=== PATIENT | female | born 1975 | race Caucasian/White ===

== ENCOUNTER 2017-11-23 14:11 | Inpatient (IN) | payer MEDICAID ==
[~2017-11-23] VITALS: Ht 170.2 cm; Wt 127.4 kg
--- NOTE | ~2017-11-23 | OP ---
PATIENT NAME: MARGARET QUIROZ MEDICAL RECORD: [id number] :73 LOCATION:D.M2 D.2121 ADMISSION DATE:11/23/17 SURGEON: ALFREDO FRANCO MD DATE OF OPERATION: 11/25/2017 REFERRED BY: Dr. Rowland. PREOPERATIVE DIAGNOSIS: Other mechanical complication of right arm AV fistula, T82.590A. POSTOPERATIVE DIAGNOSIS: Other mechanical complication of right arm AV fistula, T82.590A. OPERATION PERFORMED: Fistulogram with balloon angioplasty of 80% diameter stenosis of JA segment of radiocephalic AV fistula and direct cannulation of the brachial artery and performance of a brachial artery arteriogram. SURGEON: Alfredo Franco MD ANESTHESIA: General with LMA per TOBACCO DRUMMER. PREOPERATIVE NOTE: Ms. Quiroz is a 42-year-old -[place] female whom I met for the first time on Tuesday at the [facility] where she had been referred because of fistula complications. She was having a difficult access and low flows and high pressures. Her fistulogram revealed extensive thrombus within the fistula and a venous outflow stenosis, which I dilated. I was unable to adequately relieve her off the clot load, which continued to impair flow through her fistula. I felt that she would require anticoagulation and probably open thrombectomy. She was admitted to the hospital and placed on a continuous heparin drip. By yesterday afternoon, she was able to be dialyzed with her established fistula and that dialysis session went well with flows of about 175 cc a minute. She is brought to the operating room now to do that planned fistulogram and additional procedures as necessary to save the access. Her heparin has not been discontinued, but she is still receiving 1000 units per hour. DESCRIPTION OF PROCEDURE: Under anesthesia in supine position, the patient was prepped and draped in a sterile manner. I examined her fistula with ultrasound and was pleased to see resolution of the thrombus load, which had been there 2 days ago. I accessed her fistula near the arterial anastomosis with a 21-gauge needle and micropuncture technique and performed a fistulogram, which revealed no evidence of significant residual thrombus or obstruction in the body of the fistula or the venous outflow all the way to the superior vena cava. The arterial anastomosis was very difficult to image. I placed then a 6-Turkish introducer more proximally in the fistula directed towards the arterial anastomosis and using a Glidewire and glide catheter, I was able to cross the arterial anastomosis into the distal radial artery. Contrast injection revealed an apparent adequate radial artery proximally, but the images were difficult to interpret and I was unable to pass the wire and catheter retrograde up into the proximal radial artery. I therefore went on to perform a micropuncture cannulation directly into the brachial artery above the level of the antecubital space. I performed a brachial artery arteriogram then through the micropuncture catheter and this demonstrated tremendous flow in the brachial artery and radial artery to the fistula. It did demonstrate an approximately 80% diameter OPERATIVE REPORT [id number] MARGARET QUIROZ S stenosis of the juxta-anastomotic segment of the fistula. I subsequently dilated that area with a 6 mm x 40 mm Reef angioplasty balloon without difficulty with very little waste appearing in the balloon, the stenosis apparently very soft or elastic. A repeat contrast injection then demonstrated resolution of the stenosis with an adequate lumen without residual stenosis. At this point, the patient's heparin was stopped, but not reversed. The 2 micropuncture catheters and the 6-Turkish introducer were removed and the puncture sites sutured with ceanhd-gr-hihry 4-0 Prolene and hemostasis obtained with a brief period of direct pressure. There was good flow still in the fistula with a good pulse, no evidence of hematoma formation at the brachial artery puncture site. Dressings of Avitene Ultrafoam, Tegaderm, and Cavilon skin prep were applied and the patient awakened and returned to the recovery room. Blood loss during the procedure was about 5 cc, none was replaced. All sponges, instruments, and needles were accounted for. No drain was used, etc. I believe the patient can be discharged to home today if okay with nephrology. I think she should return to [facility] in about 6 weeks for followup angiogram, but otherwise no necessary change in her medications, diet, activities, or dialysis schedule. TRANSINT:[id number] Voice Confirmation ID: [id number] DOCUMENT ID: [id number] ALFREDO FRANCO MD at 1411 CC: ELLIS PINEDA, CLAUDIA CHUNG MD and [id number] DICTATION DATE: 11/25/17 1506 EKG MANAGER: 11/25/17 1625 DIS IN 11/26/17 [address] [place] [address]
[2017-11-23] MEDS ORDERED: SYSTANE 0.3-0.4%5 ML EACH EYE (15:35)
[2017-11-23] MEDS ORDERED: XALATAN 0.0052.5 ML EACH EYE (15:35)
[2017-11-23] MEDS ORDERED: ALPHAGAN P 0.155 ML EACH EYE (15:36)
[2017-11-23] MEDS ORDERED: OMEPRAZOLE20 M1 PO (15:37)
[2017-11-23] MEDS ORDERED: ZYLOPRIM300 MG PO (15:40)
[2017-11-23] MEDS ORDERED: RENVELA0.8 GM PO ×2 (15:41→15:42)
[2017-11-23] MEDS ORDERED: RENA-VITE TABL0.8 MG PO (15:42)
[2017-11-23] MEDS ORDERED: SENSIPAR90 MG PO (15:43)
[2017-11-23] MEDS ORDERED: ZYRTEC10 MG PO (15:43)
[2017-11-23] MEDS ORDERED: EMLA CREAM 30 G30 G1 TOPICAL (15:45)
[2017-11-23] MEDS ORDERED: PHOSLO667 MG PO ×2 (15:47)
[2017-11-23] MEDS ORDERED: SORBITOL4000 ML PO (15:48)
[2017-11-23] MEDS ORDERED: PROAIR HFA8.5 GM INH (15:49)
[2017-11-23] MEDS ORDERED: ZESTRIL40 MG PO (15:49)
[2017-11-23] MEDS ORDERED: VITAMIN B-12500 MC1 PO (15:50)
[2017-11-23] MEDS ORDERED: NEURONTIN 300300 MG PO (15:51)
[2017-11-23] MEDS ORDERED: TOPROL XL25 MG PO (15:51)
[2017-11-23] MEDS ORDERED: COMPAZINE10 MG PO (15:52)
[2017-11-23] MEDS ORDERED: ULTRAM50 MG PO (16:05)
[2017-11-23] MEDS ORDERED: CLOTRIMAZOLE-BE30 ML TOPICAL (16:06)
[2017-11-23 16:40] VITALS: BMI 36.9
[2017-11-23 18:15] LABS: APTT 26.7 SECONDS (22.8-39.4); INR 1.1 (0.85-1.17); PROTIME 13.8 SECONDS (11.6-15.0)
[2017-11-23 18:16] LABS: ANION GAP 20.7 mmol/L (8-16); CALCIUM 8.2 mg/dL (8.5-10.1); CARBON DIOXIDE 20.7 mmol/L (21.0-32.0); CREATININE - SERUM 15.5 mg/dL (0.6-1.3); POTASSIUM - SERUM 5.4 mmol/L (3.5-5.1)
[2017-11-23 21:00] VITALS: BP 103/54
[2017-11-24 06:04] VITALS: BP 103/49
[2017-11-24 08:08] VITALS: BP 111/56
[2017-11-24 11:37] VITALS: BP 113/60
[2017-11-24 13:14] VITALS: Ht 170.2 cm; Wt 127.4 kg
[2017-11-24 22:44] VITALS: BP 90/52
[2017-11-25 00:59] VITALS: BP 99/65
[2017-11-25 05:18] LABS: BASOPHILS 0.2 % (0-2); EOSINOPHILS 8.4 % (0-7); HEMATOCRIT 38.6 % (36.0-48.0); HEMOGLOBIN 12.6 g/dL (12-16); IMMATURE GRANULOCYTES 0.1 % (0-5); MCH 30.2 pg (26.0-34.0); MCHC 32.6 g/dL (31.0-37.0); MCV 92.6 fL (80.0-100.0); MEAN PLATELET VOLUME 9.3 fL (7.4-10.4); MONOCYTES 10.8 % (2-11); NEUTROPHILS 51.5 % (40-80); PLATELET COUNT 149 10x3/uL (130-400); RBC 4.17 10x6/uL (4.00-5.40); RDW 13.2 % (11.5-14.5); WBC 8.5 10x3/uL (4.8-10.8)
[2017-11-25 05:23] LABS: CALCIUM 8.4 mg/dL (8.5-10.1); CARBON DIOXIDE 26.1 mmol/L (21.0-32.0); CREATININE - SERUM 13.5 mg/dL (0.6-1.3); POTASSIUM - SERUM 5.1 mmol/L (3.5-5.1)
[2017-11-25 05:27] VITALS: BP 106/70
[2017-11-25 07:57] VITALS: BP 111/75
[2017-11-25 11:30] VITALS: BP 127/74
[2017-11-25 14:05] LABS: HCG SERUM NEGATIVE (NEGATIVE)
[2017-11-25 15:35] VITALS: BP 107/63
[2017-11-25 20:07] VITALS: BP 107/61
[2017-11-26] VITALS: BP 108/57
[2017-11-26 05:21] VITALS: BP 114/67
[2017-11-26 06:09] LABS: BASOPHILS 0.3 % (0-2); HEMATOCRIT 36.7 % (36.0-48.0); HEMOGLOBIN 11.9 g/dL (12-16); IMMATURE GRANULOCYTES 0.1 % (0-5); LYMPHOCYTES 29.5 % (15-50); MCH 30.1 pg (26.0-34.0); MCHC 32.4 g/dL (31.0-37.0); MCV 92.9 fL (80.0-100.0); MONOCYTES 10.7 % (2-11); NEUTROPHILS 50.4 % (40-80); PLATELET COUNT 134 10x3/uL (130-400); RBC 3.95 10x6/uL (4.00-5.40); RDW 13.2 % (11.5-14.5); WBC 6.8 10x3/uL (4.8-10.8)
[2017-11-26 06:14] LABS: ANION GAP 22.1 mmol/L (8-16); CALCIUM 8.1 mg/dL (8.5-10.1); CARBON DIOXIDE 22.7 mmol/L (21.0-32.0); CREATININE - SERUM 15.5 mg/dL (0.6-1.3); POTASSIUM - SERUM 5.8 mmol/L (3.5-5.1)
[2017-11-26 07:51] VITALS: BP 131/74
[2017-11-26] MEDS ORDERED: NORCO 7.5/325 T1 TA1 PO (12:03)
== END 2017-11-26 15:01 | disposition home or self-care (01) | DRG 252 ==
LOC: D.SDCHOLD 14:11 → D.M2 14:54 → D.SDCHOLD 11-24 14:56 → D.M2 11-26 15:01
PROVIDERS: Anesthesiology; Internal Medicine Nephrology; Surgery
PROC: 5A1D70Z Performance of Urinary Filtration, Intermittent, Less than 6 Hours Per Day (ICD-10-PCS; 2017-11-24)
PROC: B51W1ZZ Fluoroscopy of Dialysis Shunt/Fistula using Low Osmolar Contrast (ICD-10-PCS; 2017-11-25)
PROC: B31H1ZZ Fluoroscopy of Right Upper Extremity Arteries using Low Osmolar Contrast (ICD-10-PCS; 2017-11-25)
PROC: 037B3ZZ Dilation of Right Radial Artery, Percutaneous Approach (ICD-10-PCS; principal; 2017-11-25 11:55)
PROC: 03773ZZ Dilation of Right Brachial Artery, Percutaneous Approach (ICD-10-PCS; 2017-11-25 11:55)
DX: T82.868A Thrombosis due to vascular prosthetic devices, implants and grafts, initial encounter (principal); N18.6 End stage renal disease; I12.0 Hypertensive chronic kidney disease with stage 5 chronic kidney disease or end stage renal disease; Y83.8 Other surgical procedures as the cause of abnormal reaction of the patient, or of later complication, without mention of misadventure at the time of the procedure; Z99.2 Dependence on renal dialysis; H40.9 Unspecified glaucoma

== ENCOUNTER 2018-03-07 12:25 | Inpatient (IN) | payer MEDICAID ==
[~2018-03-07] VITALS: Ht 170.2 cm; Wt 112.0 kg
--- NOTE | ~2018-03-07 | OP ---
PATIENT NAME: MARGARET QUIROZ MEDICAL RECORD: [id number] :73 LOCATION:D.M2 D.2103 ADMISSION DATE:03/07/18 SURGEON: ALFREDO FRANCO MD DATE OF OPERATION: 03/07/2018 REFERRING PHYSICIAN: Mark Hernandez MD and Yasir Rowland MD PREOPERATIVE DIAGNOSES: End-stage renal disease and thrombosis of her AV fistula in the right forearm radiocephalic. 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 ADDITIONAL DIAGNOSES: Hypertension and morbid obesity. OPERATION PERFORMED: Ultrasound-guided insertion of left internal jugular tunneled dialysis catheter. SURGEON: Alfredo Franco MD ANESTHESIA: Local with ROPE RIDER monitoring. PREOPERATIVE NOTE: Ms. Quiroz is a morbidly obese 42-year-old -[place] female from [facility] [address] [facility]. She has end-stage renal disease and is on chronic hemodialysis. Dr. Rowland of [place] is her primary ophthalmic dispenser. She has a thrombosed right arm radiocephalic fistula, which she has had now since 2008. It was constructed by Dr. Aviles and has had a few interventions. Last November, it was thrombosed and this was reopened at [facility]. She is not on any anticoagulant medications. Dr. Hernandez tried to reopen the fistula, but found an organized large thrombus within central aneurysmal portion of the fistula and was unsuccessful. The patient was brought to the operating room now to place a dialysis catheter with plans to bring her back to the operating room when OR time is available to try to salvage her access. DESCRIPTION OF PROCEDURE: Under local anesthesia only, the operation was performed. This was 1% lidocaine without epinephrine. A ROPE RIDER was in the room and monitored the patient, but did not administer medications. This was because the patient was not n.p.o., although she had been asked to remain n.p.o. at [facility] earlier in the day. She had a bag of chips on her way to the hospital. I used ultrasound guidance to locate the left internal jugular vein. I noted it was of normal caliber and fully compressible. I made a small incision over it at the base of the neck and inserted a needle and guidewire and advanced the wire into the right atrium under fluoroscopy. Serial dilators were passed and lastly a peel-away sheath dilator was inserted. I chose a HemoSplit catheter and made a small incision for it beneath the clavicle and then pulled the catheter from that site through a subcutaneous tunnel up to the cervical wound and inserted the catheter through the peel-away sheath. The tip was positioned appropriately in the right atrium. There were no complications or misplacement at all seen on fluoroscopy. Both lumens were accessed and aspirated, free return of blood was confirmed. They were then flushed with saline and then heparin solution, clamped and capped. The catheter was sutured to the skin at the entry site with 2-0 Prolene. The cervical incision was closed with interrupted inverted 3-0 Vicryl and Dermabond glue. That site was dressed with Maxorb Ag, Tegaderm and Cavilon skin prep. The exit site was dressed with a OPERATIVE REPORT [id number] MARGARET QUIROZ chlorhexidine biopatch and a standard CVL dressing. The patient then was returned to her room in a stable condition. Blood loss was about 10 cc and of course unreplaced. Sponges, instruments, and needles of coarse were accounted for. No specimen was submitted for histopathology. PLAN: Hemodialysis tonight. We will make her n.p.o. again tomorrow and hopefully if OR time is available in the afternoon or early evening after I complete [facility] clinic, I can get her back to the operating room for an attempt to salvage her fistula with thrombectomy. TRANSINT:[id number] Voice Confirmation ID: [id number] DOCUMENT ID: [id number] ALFREDO FRANCO MD at 1241 CC: YASIR CHUNG [id number] DICTATION DATE: 03/23/18 1154 TOMBSTONE POLISHER: 03/23/18 1547 DIS IN 03/12/18 [facility] [address] [place] [address]
--- NOTE | ~2018-03-07 | OP ---
PATIENT NAME: MARGARET QUIROZ MEDICAL RECORD: [id number] :73 LOCATION:D.M2 D.2103 ADMISSION DATE:03/07/18 SURGEON: ALFREDO FRANCO MD DATE OF OPERATION: 03/10/2018 REFERRED BY: Cathie Leiva MD PREOPERATIVE DIAGNOSES: End-stage renal disease and dependence on hemodialysis and thrombosed right forearm radiocephalic AV fistula. ADDITIONAL DIAGNOSES: Hypertension, morbid obesity. PREOPERATIVE NOTE: Ms. Quiroz is a 42-year-old female with end-stage renal disease, on chronic hemodialysis in [place] via her right forearm radiocephalic AV fistula, which was initially constructed by Dr. Aviles in 2008. 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 It thrombosed this week and Dr. Leiva attempted percutaneous mechanical thrombolysis at [facility], but found there was an excessive load of organized thrombus, which he could not break up and so she was admitted to the hospital. She was unfortunately severely hyperkalemic and it has taken several days for her to be treated for that with a HemoSplit tunneled catheter, which I inserted a couple of days ago, but today her potassium is fine after dialysis yesterday and she is brought to the operating room to try and open the thrombectomy and possible major revision and possible conversion to an AV graft. DESCRIPTION OF PROCEDURE: Under general anesthesia per GAME TRAPPER with LMA, the patient was placed in supine position on the right upper extremity, prepped and draped in a sterile manner. I examined her with ultrasound and noted extensive thrombus from the distal cannulation aneurysm to the antecubital space. I made a longitudinal incision in the forearm at about the junction of the proximal and middle thirds directly over the fistula and exposed it and dissected it circumferentially and segment was controlled with 2 doubly looped Silastic tapes. The patient was heparinized with 5000 units of heparin and a venotomy made in the fistula and thrombus removed from the venous outflow using a Lina embolectomy catheter. A digital subtraction angiogram was performed, which demonstrated the fistula to have its primary runoff via a brachial vein, but also with significant runoff via the basilic vein. In the basilic vein, just a couple of inches above the elbow crease, there was a prominent valve with prominent thrombus behind it, which resulted in a basilic vein stenosis. This was treated with balloon angioplasty with a 10-mm diameter angioplasty balloon. The balloon did exhibit a waist during its inflation, but did reach full effacement with a pressure of about 8 atmospheres. After the balloon was then removed, a repeat contrast study revealed no venous outflow obstruction. The veins were then flushed with heparinized saline and the fistula was clamped proximal to the venotomy. I then used a larger Lina embolectomy catheter to remove the thrombus from the arterial limb and from aneurysmal areas. There was some arterial flow present almost immediately, but after I removed thrombus with extensive use of curette and suction and massage, excellent gush of arterial inflow was obtained. I performed a retrograde fistulogram and demonstrated though persistent clot and no filling of the radial artery or juxta-anastomotic segment. I then removed more thrombus from the aneurysmal areas with more vigorous massage and more extensive use of the [employer] suction as a curette and then a repeated contrast study looked very much better. Still the juxta-anastomotic segment and radial artery anastomosis were not visualized. I passed a 0.035 angled Glidewire and glide catheter distally to the region of the OPERATIVE REPORT [id number] MARGARET QUIROZ S radial artery anastomosis and was able to pass the guidewire into the radial artery and advanced it proximally and then advanced the glide catheter into the proximal radial artery. Selective radial artery arteriography was then performed, which revealed a dilated proximal artery with a smooth patent distal artery filling normally. There was good flow from the radial artery into the fistula and good flow in the fistula, so the wire and catheter were removed and the venotomy and the fistula closed with running 6-0 Prolene. I then accessed the fistula again with a micropuncture needle and catheter and performed a completion angiogram, which revealed excellent flow in the fistula. No significant residual thrombus and basically no problems other than the aneurysmal deterioration. The patient was then awakened and taken to the recovery room in stable condition. Blood loss during the operation was about 150 cc, none was replaced. All sponges, instruments, and needles were accounted for. No drain was used. No surgical specimen was submitted for histopathology. I believe that if stable immediately postop, the patient could be discharged to home today and follow up at [facility] in 3-4 weeks with a followup angiogram and if at that time it looks good, then the tunneled dialysis catheter should be removed. The dialysis unit is encouraged to dialyze her with her fistula primarily starting tomorrow and we will save the tunneled catheter only for back up. I am giving her a dose of 150 mg of Plavix today and a prescription for Plavix 75 mg [address] Leiva may wish to place her on additional anticoagulation, we will leave that to him. Her incision sealed with glue and dressed with Maxorb Ag, Tegaderm with Cavilon skin prep. It can remain covered with the same initial operative dressing for 5-7 days and then just be removed. After that, she will require no more than just a clean gauze dressing changed at that site every other day or so and the site will be able to be washed with soap and water. I have not made a routine followup appointment for her in my office because she lives at such a distance and will be coming back for [facility] followup. TRANSINT:[id number] Voice Confirmation ID: [id number] DOCUMENT ID: [id number] ALFREDO FRANCO MD at 1241 CC: CATHIE LEIVA MD and DR. ANKUR MCLAUGHLIN [id number] DICTATION DATE: 03/10/18 1117 GUEST SERVICE SUPERVISOR: 03/10/18 1231 DIS IN 03/12/18 [facility] [address] [place] [address]
[~2018-03-07 12:25] MED LIST: ALPHAGAN P 0.155 ML EACH EYE; CLOTRIMAZOLE-BE30 ML TOPICAL; COMPAZINE10 MG PO; EMLA CREAM 30 G30 G1 TOPICAL; NEURONTIN 300300 MG PO; NORCO 7.5/325 T1 TA1 PO; OMEPRAZOLE20 M1 PO; PHOSLO667 MG PO; PROAIR HFA8.5 GM INH; RENA-VITE TABL0.8 MG PO; RENVELA0.8 GM PO; SENSIPAR90 MG PO; SORBITOL4000 ML PO; SYSTANE 0.3-0.4%5 ML EACH EYE; TOPROL XL25 MG PO; ULTRAM50 MG PO; VITAMIN B-12500 MC1 PO; XALATAN 0.0052.5 ML EACH EYE; ZESTRIL40 MG PO; ZYLOPRIM300 MG PO; ZYRTEC10 MG PO
[2018-03-07] MEDS ORDERED: LYRICA75 MG PO (13:59)
[2018-03-07 14:04] VITALS: BP 125/72; BMI 36.1
[2018-03-07 15:06] LABS: BASOPHILS 0.3 % (0-2); EOSINOPHILS 3.1 % (0-7); HEMATOCRIT 39.9 % (36.0-48.0); HEMOGLOBIN 12.5 g/dL (12-16); IMMATURE GRANULOCYTES 0.1 % (0-5); LYMPHOCYTES 23.7 % (15-50); MCHC 31.3 g/dL (31.0-37.0); MCV 95.7 fL (80.0-100.0); MEAN PLATELET VOLUME 9.9 fL (7.4-10.4); MONOCYTES 8.6 % (2-11); NEUTROPHILS 64.2 % (40-80); PLATELET COUNT 122 10x3/uL (130-400); RBC 4.17 10x6/uL (4.00-5.40); WBC 7.1 10x3/uL (4.8-10.8)
[2018-03-07 15:10] LABS: INR 1.09 (0.85-1.17); PROTIME 13.7 SECONDS (11.6-15.0)
[2018-03-07 15:11] LABS: APTT 28.8 SECONDS (22.8-39.4)
[2018-03-07 15:18] LABS: ANION GAP 18.3 mmol/L (8-16); CALCIUM 9.7 mg/dL (8.5-10.1); CARBON DIOXIDE 24.5 mmol/L (21.0-32.0); CREATININE - SERUM 12.4 mg/dL (0.6-1.3)
[2018-03-07 15:20] LABS: POTASSIUM - SERUM 6.8 mmol/L (3.5-5.1)
[2018-03-07 15:22] LABS: HCG SERUM NEGATIVE (NEGATIVE)
[2018-03-07 18:23] LABS: POTASSIUM - SERUM 6.5 mmol/L (3.5-5.1)
[2018-03-07 20:38] VITALS: BP 115/63
[2018-03-08 05:48] LABS: BASOPHILS 0.1 % (0-2); EOSINOPHILS 4.5 % (0-7); HEMATOCRIT 38.1 % (36.0-48.0); HEMOGLOBIN 12.1 g/dL (12-16); IMMATURE GRANULOCYTES 0.1 % (0-5); LYMPHOCYTES 9.7 % (15-50); MCH 30.1 pg (26.0-34.0); MCHC 31.8 g/dL (31.0-37.0); MCV 94.8 fL (80.0-100.0); MEAN PLATELET VOLUME 10.4 fL (7.4-10.4); MONOCYTES 10.5 % (2-11); NEUTROPHILS 75.1 % (40-80); PLATELET COUNT 135 10x3/uL (130-400); RBC 4.02 10x6/uL (4.00-5.40); RDW 13.9 % (11.5-14.5); WBC 6.9 10x3/uL (4.8-10.8)
[2018-03-08 06:01] LABS: CALCIUM 9.6 mg/dL (8.5-10.1); CARBON DIOXIDE 25.4 mmol/L (21.0-32.0); CREATININE - SERUM 10.8 mg/dL (0.6-1.3)
[2018-03-08 06:04] LABS: ANION GAP 14.6 mmol/L (8-16)
[2018-03-08 06:19] VITALS: BP 115/63; BMI 36.1
[2018-03-08 09:16] VITALS: BP 116/65
[2018-03-08 10:40] VITALS: Ht 170.2 cm; Wt 112.0 kg
[2018-03-08 11:05] LABS: ANION GAP 15.3 mmol/L (8-16); CARBON DIOXIDE 27.4 mmol/L (21.0-32.0); POTASSIUM - SERUM 5.7 mmol/L (3.5-5.1)
[2018-03-08 12:54] VITALS: BP 144/48
[2018-03-08 17:05] VITALS: BP 108/65
[2018-03-08 20:44] LABS: HCG SERUM NEGATIVE (NEGATIVE)
[2018-03-08 21:25] VITALS: BP 117/64
[2018-03-09 00:50] VITALS: BP 107/60
[2018-03-09 04:50] VITALS: BP 99/57
[2018-03-09 05:02] LABS: BASOPHILS 0.2 % (0-2); EOSINOPHILS 11.6 % (0-7); HEMATOCRIT 36.8 % (36.0-48.0); HEMOGLOBIN 11.8 g/dL (12-16); IMMATURE GRANULOCYTES 0.2 % (0-5); LYMPHOCYTES 29.7 % (15-50); MCH 30.5 pg (26.0-34.0); MCHC 32.1 g/dL (31.0-37.0); MCV 95.1 fL (80.0-100.0); MEAN PLATELET VOLUME 9.6 fL (7.4-10.4); MONOCYTES 11.1 % (2-11); NEUTROPHILS 47.2 % (40-80); PLATELET COUNT 117 10x3/uL (130-400); RBC 3.87 10x6/uL (4.00-5.40); RDW 14.1 % (11.5-14.5); WBC 5.9 10x3/uL (4.8-10.8)
[2018-03-09 05:26] LABS: ANION GAP 19.2 mmol/L (8-16); CALCIUM 9.7 mg/dL (8.5-10.1); CARBON DIOXIDE 26.1 mmol/L (21.0-32.0); CREATININE - SERUM 13.5 mg/dL (0.6-1.3)
[2018-03-09 05:36] LABS: POTASSIUM - SERUM 6.3 mmol/L (3.5-5.1)
[2018-03-09 08:08] VITALS: BP 130/79
[2018-03-09 14:26] VITALS: BP 164/91
[2018-03-09 15:45] VITALS: BP 124/67
[2018-03-09 20:00] VITALS: BP 123/67
[2018-03-10 01:00] VITALS: BP 104/59
[2018-03-10 05:11] VITALS: BP 104/66
[2018-03-10 05:24] LABS: BASOPHILS 0.4 % (0-2); EOSINOPHILS 15.8 % (0-7); HEMOGLOBIN 11.6 g/dL (12-16); IMMATURE GRANULOCYTES 0.2 % (0-5); LYMPHOCYTES 25.9 % (15-50); MCH 30.2 pg (26.0-34.0); MCHC 32.2 g/dL (31.0-37.0); MCV 93.8 fL (80.0-100.0); MEAN PLATELET VOLUME 10.2 fL (7.4-10.4); MONOCYTES 8.6 % (2-11); NEUTROPHILS 49.1 % (40-80); PLATELET COUNT 113 10x3/uL (130-400); RBC 3.84 10x6/uL (4.00-5.40); RDW 13.5 % (11.5-14.5); WBC 5.4 10x3/uL (4.8-10.8)
[2018-03-10 05:48] LABS: CALCIUM 9.7 mg/dL (8.5-10.1); CARBON DIOXIDE 27.2 mmol/L (21.0-32.0); CREATININE - SERUM 11.3 mg/dL (0.6-1.3)
[2018-03-10 05:53] LABS: POTASSIUM - SERUM 5.2 mmol/L (3.5-5.1)
[2018-03-10 08:16] VITALS: BP 133/75
[2018-03-10 11:43] VITALS: BP 116/62
[2018-03-10 15:48] VITALS: BP 102/59
[2018-03-10 20:00] VITALS: BP 121/69
[2018-03-11 01:00] VITALS: BP 113/51
[2018-03-11 04:30] VITALS: BP 113/64
[2018-03-11 05:07] LABS: BASOPHILS 0.2 % (0-2); EOSINOPHILS 2.2 % (0-7); HEMATOCRIT 34.2 % (36.0-48.0); HEMOGLOBIN 10.9 g/dL (12-16); IMMATURE GRANULOCYTES 0.3 % (0-5); LYMPHOCYTES 16.6 % (15-50); MCH 29.9 pg (26.0-34.0); MCHC 31.9 g/dL (31.0-37.0); MEAN PLATELET VOLUME 9.8 fL (7.4-10.4); MONOCYTES 15.1 % (2-11); NEUTROPHILS 65.6 % (40-80); RBC 3.64 10x6/uL (4.00-5.40); RDW 13.8 % (11.5-14.5); WBC 6.4 10x3/uL (4.8-10.8)
[2018-03-11 05:13] LABS: ANION GAP 18.9 mmol/L (8-16); CALCIUM 9.6 mg/dL (8.5-10.1); CARBON DIOXIDE 25.4 mmol/L (21.0-32.0); CREATININE - SERUM 13.7 mg/dL (0.6-1.3)
[2018-03-11 05:15] LABS: PLATELET COUNT 139 10x3/uL (130-400)
[2018-03-11 05:26] LABS: POTASSIUM - SERUM 6.3 mmol/L (3.5-5.1)
[2018-03-11 10:05] VITALS: BP 116/62
[2018-03-11 16:58] VITALS: BP 112/64
[2018-03-11 21:00] VITALS: BP 111/58
[2018-03-12 02:30] VITALS: BP 91/51
[2018-03-12 05:08] LABS: POTASSIUM - SERUM 5.6 mmol/L (3.5-5.1)
[2018-03-12 05:13] LABS: BASOPHILS 0.5 % (0-2); EOSINOPHILS 14.9 % (0-7); IMMATURE GRANULOCYTES 0.2 % (0-5); MCH 29.7 pg (26.0-34.0); MCHC 31.2 g/dL (31.0-37.0); MCV 95.3 fL (80.0-100.0); MEAN PLATELET VOLUME 9.8 fL (7.4-10.4); MONOCYTES 10.9 % (2-11); NEUTROPHILS 40.5 % (40-80); RDW 13.5 % (11.5-14.5); WBC 5.8 10x3/uL (4.8-10.8)
[2018-03-12 05:15] LABS: HEMATOCRIT 26.3 % (36.0-48.0); HEMOGLOBIN 8.2 g/dL (12-16); PLATELET COUNT 84 10x3/uL (130-400); RBC 2.76 10x6/uL (4.00-5.40)
[2018-03-12 05:17] LABS: CALCIUM 9.3 mg/dL (8.5-10.1); CARBON DIOXIDE 26.2 mmol/L (21.0-32.0); CREATININE - SERUM 11.1 mg/dL (0.6-1.3)
[2018-03-12 05:18] LABS: ANION GAP 16.5 mmol/L (8-16)
[2018-03-12] MEDS ORDERED: PLAVIX75 MG PO (08:33)
[2018-03-12] MEDS ORDERED: NORCO 7.5/325 T1 TA1 PO (08:34)
[2018-03-12 09:07] VITALS: BP 99/56
[2018-03-12 12:51] VITALS: BP 115/64
== END 2018-03-12 15:20 | disposition home or self-care (01) | DRG 252 ==
LOC: D.OPS 12:25 → D.M2 12:25 → D.OPS 15:15 → D.M2 19:00 → D.OPS 21:06 → D.M2 03-12 15:20
PROVIDERS: Anesthesiology; Internal Medicine; Internal Medicine Nephrology; Surgery
PROC: 05HN33Z Insertion of Infusion Device into Left Internal Jugular Vein, Percutaneous Approach (ICD-10-PCS; 2018-03-07)
PROC: B544ZZA Ultrasonography of Left Jugular Veins, Guidance (ICD-10-PCS; 2018-03-07)
PROC: 5A1D70Z Performance of Urinary Filtration, Intermittent, Less than 6 Hours Per Day (ICD-10-PCS; principal; 2018-03-07 15:15)
PROC: 057B3ZZ Dilation of Right Basilic Vein, Percutaneous Approach (ICD-10-PCS; 2018-03-10)
PROC: B51W1ZZ Fluoroscopy of Dialysis Shunt/Fistula using Low Osmolar Contrast (ICD-10-PCS; 2018-03-10)
PROC: B31J1ZZ Fluoroscopy of Left Upper Extremity Arteries using Low Osmolar Contrast (ICD-10-PCS; 2018-03-10)
PROC: 05CB0ZZ Extirpation of Matter from Right Basilic Vein, Open Approach (ICD-10-PCS; 2018-03-10 08:00)
DX: T82.868A Thrombosis due to vascular prosthetic devices, implants and grafts, initial encounter (principal); N18.6 End stage renal disease; I12.0 Hypertensive chronic kidney disease with stage 5 chronic kidney disease or end stage renal disease; Y83.8 Other surgical procedures as the cause of abnormal reaction of the patient, or of later complication, without mention of misadventure at the time of the procedure; Z99.2 Dependence on renal dialysis; K21.9 Gastro-esophageal reflux disease without esophagitis; E87.5 Hyperkalemia; E66.01 Morbid (severe) obesity due to excess calories; Z68.36 Body mass index [BMI] 36.0-36.9, adult

== ENCOUNTER 2018-09-14 13:32 | Inpatient (IN) | payer MEDICAID ==
[~2018-09-14] VITALS: Ht 170.2 cm; Wt 103.6 kg
--- NOTE | ~2018-09-14 | MORECARE ---
CASE MANAGEMENT DISCHARGE SUMMARY PATIENT: MARGARET PIERRE UNIT: [id number] ADM DATE: 09/14/18 AGE: 43 : [birth year] SEX: F ROOM/BED: D.1211 AUTHOR: ROMERO LUCAS PHYSICIAN: REFERRING PHYSICIAN: CATHIE HERNANDEZ MD DATE OF SERVICE: 09/20/18 Discharge Plan Patient Name: MARGARET PIERRE Facility: [facility]:[place] : 1975 Planned Disposition: Home Anticipated Discharge Date: Discharge Date: 09/20/2018 Expected LOS: Initial Reviewer: [email or web address] Initial Review Date: 09/14/2018 Generated: 09/20/18 8:15 pm Comments DCP- Discharge Planning Updated by [email or web address]: Debbi Murray on 09/19/18 8:[address] CM received notice of plan for possible discharge in a.m. CM to assist with arranging patient to go to [facility] after discharge for permanent dialysis cath placement and trialysis removal. CM called and spoke with Art @ [facility] and received appointment time of 12:00 noon. CM called [facility] transportation to see if they could pick patient up from [facility]. CM was notified that a letter was needed to be faxed to [facility] office explaining patients discharge plan. CM sent letter and then verified that it was received. CM obtained conformation number [id number] from [facility]. [facility] is to medicinal plant picker patient at [facility] [address] @ 2 pm 09/20/18. CM received approval for Taxi voucher for patient to go to [facility] from our facility upon discharge in A.M. CM spoke with Dr. Bravo / Dr. Hernandez and Maggie with dialysis to arrange for patient dialysis today since her regular schedule is MW in [place]. Patient to have dialysis today and then at ([place]) regular clinic on Tuesday. CM will continue to follow and assist as needed with discharge planning / needs. DCP- Discharge Planning Updated by [email or web address]: Debbi Murray on 09/19/18 8:[address] LATE ENTRY 09/19/18 Patient Name: MARGARET PIERRE Admission Status: Urgent Accout number: [id number] Admission Date: 09-14-2018 : 1975 Admission Diagnosis:THROMBOSIS DUE TO VASCULAR PROSTH DEV/GRFT, INIT Attending: Cathie Hernnadez Current LOS: 5 Anticipated DC Date: Planned Disposition: Home Primary Insurance: MEDICAID [place] Discharge Planning Comments: CM spoke with patient at bedside. Patient plans to return to her home in [place]. She plans on having dialysis MWF at [place] dialysis center ([facility]) Patient states she will need transportation home with [employer] transportation. Mobile Patrol Officer: Debbi Guidry DP export: 09/19/18 8:22 p Patient Name: MARGARET PIERRE Page [phone] at 1915 All edits/amendments must be made on the electronic document DICTATION DATE: 09/20/181914 SOILED LINEN DISTRIBUTOR: VICKY 09/20/181914 RPT#: [id number] DC DATE:09/20/18 STATUS: DIS IN [facility] [address] [place] [address] END OF REPORT
--- NOTE | ~2018-09-14 | MORECARE ---
CASE MANAGEMENT DISCHARGE SUMMARY PATIENT: MARGARET PIERRE UNIT: [id number] ADM DATE: 09/14/18 AGE: 43 : [birth year] SEX: F ROOM/BED: [facility] AUTHOR: ROMERO LUCAS PHYSICIAN: REFERRING PHYSICIAN: CATHIE LEIVA MD DATE OF SERVICE: 09/19/18 Discharge Plan Patient Name: MARGARET PIERRE Facility: [facility]:[place] : 1975 Planned Disposition: Home Anticipated Discharge Date: Discharge Date: Expected LOS: Initial Reviewer: [email or web address] Initial Review Date: 09/14/2018 Generated: 09/19/18 9:56 pm Patient Name: MARGARET PIERRE Page [phone] at 2055 All edits/amendments must be made on the electronic document DICTATION DATE: 09/19/182055 LIQUOR COMMISSIONER: VICKY 09/19/182055 RPT#: [id number] DC DATE: STATUS: ADM IN [facility] [address] [place] [address] END OF REPORT
--- NOTE | ~2018-09-14 | MORECARE ---
CASE MANAGEMENT DISCHARGE SUMMARY PATIENT: MARGARET PIERRE UNIT: [id number] ADM DATE: 09/14/18 AGE: 43 : 74 SEX: F ROOM/BED: D.1211 AUTHOR: ROMERO LUCAS PHYSICIAN: REFERRING PHYSICIAN: CATHIE HERNANDEZ MD DATE OF SERVICE: 09/20/18 Discharge Plan Patient Name: MARGARET PIERRE Facility: [facility]:[place] : 1975 Planned Disposition: Home Anticipated Discharge Date: Discharge Date: 09/20/2018 Expected LOS: Initial Reviewer: [email or web address] Initial Review Date: 09/14/2018 Generated: 09/20/18 8:34 pm Comments DCP- Discharge Planning Updated by [email or web address]: Debbi Murray on 09/19/18 8:[address] CM received notice of plan for possible discharge in a.m. CM to assist with arranging patient to go to [facility] after discharge for permanent dialysis cath placement and trialysis removal. CM called and spoke with Art @ [facility] and received appointment time of 12:00 noon. CM called [employer] transportation to see if they could pick patient up from [facility]. CM was notified that a letter was needed to be faxed to [facility] office explaining patients discharge plan. CM sent letter and then verified that it was received. CM obtained conformation number [id number] from [facility]. [facility] is to brick picker patient at [facility] [address] @ 2 pm 09/20/18. CM received approval for Taxi voucher for patient to go to [facility] from our facility upon discharge in A.M. CM spoke with Dr. Bravo / Dr. Hernandez and Maggie with dialysis to arrange for patient dialysis today since her regular schedule is MW in [place]. Patient to have dialysis today and then at ([place]) regular clinic on Tuesday. CM will continue to follow and assist as needed with discharge planning / needs. DCP- Discharge Planning Updated by [email or web address]: Debbi Murray on 09/19/18 8:[address] LATE ENTRY 09/19/18 Patient Name: MARGARET PIERRE Admission Status: Urgent Accout number: [id number] Admission Date: 09-14-2018 : 1975 Admission Diagnosis:THROMBOSIS DUE TO VASCULAR PROSTH DEV/GRFT, INIT Attending: Cathie Hernandez Current LOS: 5 Anticipated DC Date: Planned Disposition: Home Primary Insurance: MEDICAID [place] Discharge Planning Comments: CM spoke with patient at bedside. Patient plans to return to her home in [place]. She plans on having dialysis MWF at [place] [facility] center [facility] Patient states she will need transportation home with [employer] transportation. Tour Driver: Debbi Guidry DP export: 09/20/18 6:15 p Patient Name: MARGARET PIERRE Page [phone] at 1934 All edits/amendments must be made on the electronic document DICTATION DATE: 09/20/181933 SENIOR PRINCIPAL ARCHITECT: VICKY 09/20/181933 RPT#: [id number] DC DATE:09/20/18 STATUS: DIS IN [facility] [address] [place] [address] END OF REPORT
--- NOTE | ~2018-09-14 | MORECARE ---
CASE MANAGEMENT DISCHARGE SUMMARY PATIENT: MARGARET PIERRE UNIT: [id number] ADM DATE: 09/14/18 AGE: 43 : [birth year] SEX: F ROOM/BED: D.1211 AUTHOR: ROMERO LUCAS PHYSICIAN: REFERRING PHYSICIAN: CATHIE HERNANDEZ MD DATE OF SERVICE: 09/19/18 Discharge Plan Patient Name: MARGARET PIERRE Facility: [facility]:[place] : 1975 Planned Disposition: Home Anticipated Discharge Date: Discharge Date: Expected LOS: Initial Reviewer: [email or web address] Initial Review Date: 09/14/2018 Generated: 09/19/18 10:03 pm Comments DCP- Discharge Planning Updated by [email or web address]: Debbi Murray on 09/19/18 8:[address] LATE ENTRY 09/19/18 Patient Name: MARGARET PIERRE Admission Status: Urgent Accout number: [id number] Admission Date: 09-14-2018 : 1975 Admission Diagnosis:THROMBOSIS DUE TO VASCULAR PROSTH DEV/GRFT, INIT Attending: Cathie Hernandez Current LOS: 5 Anticipated DC Date: Planned Disposition: Home Primary Insurance: MEDICAID [place] Discharge Planning Comments: CM spoke with patient at bedside. Patient plans to return to her home in [place]. She plans on having dialysis MWF at [place] dialysis center ([facility]) Patient states she will need transportation home with [employer] transportation. Social Media Marketing Analyst: Debbi Murray Last DP export: 09/19/18 7:56 p Patient Name: MARGARET PIERRE Page 47573 at 2103 All edits/amendments must be made on the electronic document DICTATION DATE: 09/19/182102 SALES TEAM MANAGER: VICKY 09/19/182102 RPT#: [id number] DC DATE: STATUS: ADM IN [facility] [address] [place] [address] END OF REPORT
--- NOTE | ~2018-09-14 | MORECARE ---
CASE MANAGEMENT DISCHARGE SUMMARY PATIENT: MARGARET PIERRE UNIT: [id number] ADM DATE: 09/14/18 AGE: 43 : [birth year] SEX: F ROOM/BED: D.1211 AUTHOR: ROMERO LUCAS PHYSICIAN: REFERRING PHYSICIAN: CATHIE HERNANDEZ MD DATE OF SERVICE: 09/19/18 Discharge Plan Patient Name: MARGARET PIERRE Facility: [facility]:[place] : 1975 Planned Disposition: Home Anticipated Discharge Date: Discharge Date: Expected LOS: Initial Reviewer: [email or web address] Initial Review Date: 09/14/2018 Generated: 09/19/18 10:21 pm Comments DCP- Discharge Planning Updated by [email or web address]: Debbi Murray on 09/19/18 8:[address] CM received notice of plan for possible discharge in a.m. CM to assist with arranging patient to go to [facility] after discharge for permanent dialysis cath placement and trialysis removal. CM called and spoke with Art @ [facility] and received appointment time of 12:00 noon. CM called [facility] transportation to see if they could pick patient up from [facility]. CM was notified that a letter was needed to be faxed to [facility] office explaining patients discharge plan. CM sent letter and then verified that it was received. CM obtained conformation number [id number] from [facility]. [facility] is to worm picker patient at [facility] [address] @ 2 pm 09/20/18. CM received approval for Taxi voucher for patient to go to [facility] from our facility upon discharge in A.M. CM spoke with Dr. Bravo / Dr. Hernandez and Maggie with dialysis to arrange for patient dialysis today since her regular schedule is [facility] in [place]. Patient to have dialysis today and then at ([place]) regular clinic on Tuesday. CM will continue to follow and assist as needed with discharge planning / needs. DCP- Discharge Planning Updated by [email or web address]: Debbi Murray on 09/19/18 8:[address] LATE ENTRY 09/19/18 Patient Name: MARGARET PIERRE Admission Status: Urgent Accout number: [id number] Admission Date: 09-14-2018 : 1975 Admission Diagnosis:THROMBOSIS DUE TO VASCULAR PROSTH DEV/GRFT, INIT Attending: Cathie Hernandez Current LOS: 5 Anticipated DC Date: Planned Disposition: Home Primary Insurance: MEDICAID [place] Discharge Planning Comments: CM spoke with patient at bedside. Patient plans to return to her home in [place]. She plans on having dialysis MWF at [place] dialysis center ([facility]) Patient states she will need transportation home with [facility] transportation. Compliance Manager: Debbi Guidry DP export: 09/19/18 8:03 p Patient Name: MARGARET PIERRE Page [phone] at 2122 All edits/amendments must be made on the electronic document DICTATION DATE: 09/19/182120 SUPERVISOR MOLDING: VICKY 09/19/182120 RPT#: [id number] DC DATE: STATUS: ADM IN [facility] [address] [place] [address] END OF REPORT
--- NOTE | ~2018-09-14 | OP ---
PATIENT NAME: MARGARET PIERRE MEDICAL RECORD: [id number] :[birth year] LOCATION:D.M3 D.1211 ADMISSION DATE:09/14/18 SURGEON: ARTHUR TORIBIO MD DATE OF OPERATION: 09/14/2018 PREOPERATIVE DIAGNOSES: 1. Hyperkalemia. 2. End-stage renal disease, on hemodialysis. 3. Clotted AV fistula. 4. Morbid obesity. 5. Hypertension. POSTOPERATIVE DIAGNOSES: 1. Hyperkalemia. 2. End-stage renal disease, on hemodialysis. 3. Clotted AV fistula. 4. Morbid obesity. 5. Hypertension. PROCEDURE: Left IJ 12.5-cm Trialysis catheter placement. SURGEON: Arthur Toribio MD REPORT OF PROCEDURE: The patient's left neck was prepped and draped in sterile fashion. A total of 5 cc of 1% lidocaine was infused into the subcutaneous tissues. Using ultrasound guidance, a needle was used to cannulate the left internal jugular vein and a guidewire was advanced with ease. Over this wire, dilator was placed followed by the Trialysis catheter. The catheter aspirated nonpulsatile dark blood and flushed easily with normal saline. This was sutured into place with 4-0 nylons and dressed appropriately. COMPLICATIONS: None. CONDITION: Stable. ANESTHESIA: Local. BLOOD LOSS: Minimal. Procedure done at the bedside. TRANSINT:[id number] Voice Confirmation ID: [id number] DOCUMENT ID: [id number] ARTHUR TORIBIO MD at 1219 CC: [id number] DICTATION DATE: 09/14/18 1557 SCIENCE TUTOR: 09/14/18 1646 DIS IN 09/20/18 [facility] [address] [place] [place] [id number]
--- NOTE | ~2018-09-14 | HEMODYNAMI ---
PATIENT:MARGARET PIERRE MEDICAL RECORD: [id number] : 73 [facility] ADMISSION DATE: 09/14/18 Generatedon:09/15/201813:26 Patient name: MARGARET PIERRE Patient #: [id number] SSN: D OB: 1975 Date of study: 09/15/2018 Page: Of Hemodynamic Procedure Report Patient Data Patient Demographics Procedure consent was obtained First Name: MARGARET Gender: Female Last Name: GABBY : 1975 Middle Initial: S Age: 43 year(s) Patient #: [id number] Race: Black Additional ID: [id number] Contact details [address]: [address] [place] [address] State: [place] City: [place] Zip code: [address] Past Medical History Allergies Allergen Reaction Date Comments Reported Penicillins 09/15/2018 Admission Admission Data Admission Date: 09/14/2018 Admission Time: 13:32 Room #: D.1211 Height (in.): 67 BSA: 2.13 (m2) Height (cm.): 170.18 BMI: 35.24 (kg/m2) Weight (lbs.): 225 Weight (kg.): 102.06 Procedure Procedure Types Cath Procedure Peripheral Cath Diagnostic Procedure Classroom Teacher Peripheral Procedures Fistula Fistulagram Single Access Procedure Description Procedure Date Procedure Date: 09/15/2018 Procedure Start Time: 11:17 Procedure Staff Name Function Cristhian Colón MD Performing Physician Cherrie Magallon RT Hotel Clerk Juanita Gallo RN Nurse Jodi Prakash RN Nurse Trenton Botello RT Scrub Procedure Data Cath Procedure Fluoroscopy Diagnostic fluoroscopy Total fluoroscopy Time: time: 23.2 min 23.2 min Diagnostic fluoroscopy Total fluoroscopy dose: 241 dose: 241 mGy mGy Contrast Material Contrast Material Type Amount (ml) Isovue 300 145 Procedure Medications Medication Administration Route Dosage Oxygen etCO2 Nasal cannula 4 l/min Lidocaine 1% added to field 20 Heparin Flush Bag added to field 3 bags (1000units/500ml NS) Versed I.V. 2 mg Fentanyl I.V. 50 mcg Heparin Bolus I.V. 5000 units Fentanyl I.V. 50 mcg Versed I.V. 1 mg Fentanyl I.V. 50 mcg Versed I.V. 1 mg Fentanyl I.V. 50 mcg Heparin Bolus I.V. 4000 units Versed I.V. 1 mg Fentanyl I.V. 50 mcg Hemodynamics Rest BSA: 2.13 (m2) O2 Consumption: Estimated: 199.48 (ml/min) O2 Consumption indexed : Estimated:93.65 (ml/min/m) Heart Rate: 53 (bpm) Snapshots Pre Cath Intra NCS Post Cath Vital Signs Time Heart Resp SPO2 etCO2 NIBP Rhythm Pain Status Sedation Rate (ipm) (%) (mmHg) (mmHg) Level (bpm) 11:08:47 54 12 100 14.2 122/60(92) SB 0 (11) , No 10(A) pain 11:13:13 51 0 100 13.5 115/62(94) SB 0 (11) , No 10(A) pain 11:17:36 59 100 13.5 120/60(85) SB 0 (11) , No 10(A) pain 11:21:52 56 100 14.9 114/69(88) SB 0 (11) , No 10(A) pain 11:26:12 68 12 98 14.2 107/60(78) NSR 0 (11) , No 8(A) pain 11:30:28 80 12 98 16.4 107/63(75) NSR 0 (11) , No 8(A) pain 11:34:46 71 18 98 14.2 105/57(77) NSR 0 (11) , No 8(A) pain 11:39:02 71 16 99 14.2 107/62(80) NSR 0 (11) , No 8(A) pain 11:43:18 70 14 100 15.7 103/63(77) NSR 0 (11) , No 8(A) pain 11:47:32 62 17 100 15.7 111/66(82) NSR 0 (11) , No 8(A) pain 11:51:50 64 17 99 13.4 110/66(84) NSR 0 (11) , No 8(A) pain 11:56:08 63 18 99 13.4 113/62(78) NSR 4 (11) , 8(A) Distressing 12:00:26 66 16 98 14.2 115/69(91) NSR 0 (11) , No 8(A) pain 12:04:44 70 13 98 14.9 111/63(85) NSR 2 (11) , 8(A) Uncomfortable 12:09:00 76 8 99 13.4 108/65(79) NSR 0 (11) , No 8(A) pain 12:13:20 78 11 99 14.2 118/57(86) NSR 0 (11) , No 8(A) pain 12:16:37 84 12 97 13.4 110/64(78) NSR 0 (11) , No 8(A) pain 12:20:55 86 18 96 11.9 106/64(81) NSR 0 (11) , No 8(A) pain 12:25:09 83 11 99 13.4 117/67(80) NSR 0 (11) , No 8(A) pain 12:29:31 78 17 13.4 119/60(81) NSR 0 (11) , No 8(A) pain 12:33:45 78 12 12.7 109/67(83) NSR 0 (11) , No 8(A) pain 12:38:03 85 15 11.9 115/62(81) NSR 0 (11) , No 8(A) pain 12:42:24 77 17 11.2 111/62(85) NSR 0 (11) , No 8(A) pain 12:46:44 78 15 11.9 115/60(77) NSR 0 (11) , No 8(A) pain 12:51:10 83 12 11.9 107/49(84) NSR 0 (11) , No 8(A) pain 12:55:28 78 13 11.9 112/60(82) NSR 0 (11) , No 8(A) pain 12:59:46 76 18 11.9 108/64(79) NSR 4 (11) , 8(A) Distressing 13:04:04 74 17 4.4 112/61(79) NSR 0 (11) , No 8(A) pain 13:08:24 80 19 4.4 113/58(78) NSR 0 (11) , No 8(A) pain 13:12:44 76 12 7.4 113/63(84) NSR 0 (11) , No 8(A) pain 13:17:04 75 15 6.7 109/57(81) NSR 0 (11) , No 8(A) pain 13:21:27 78 17 11.9 111/53(85) NSR 0 (11) , No 8(A) pain Medications Time Medication Route Dose Verified Delivered Reason Notes Effectiveness by by 11:22:43 Oxygen etCO2 4 Cristhian Juanita for sedation Nasal l/min Katarzyna Gallo RN cannula 11:22:57 Lidocaine 1% added 20ml Cristhian Morrow used for to vial Katarzyna Colón procedure field MD CHAND 11:23:31 Heparin Flush added 3 Cristhian Morrow used for Bag to bags Katarzyna Colón procedure (1000units/500ml field MD CHAND NS) 11:24:31 Versed I.V. 2 mg Cristhian Cortezine for sedation Mostly Katarzyna Gallo RN sleeping @ MD 11:39:38 11:24:41 Fentanyl I.V. 50 Cristhian Juanita for sedation Mostly mcg Katarzyna Gallo RN sleeping @ MD 11:39:34 11:34:56 Heparin Bolus I.V. 5000 Cristhian Grant for units Katarzyna Gallo RN anticoagulation MD 11:41:40 Fentanyl I.V. 50 Cristhian Juanita for sedation mcg Katarzyna Gallo RN, MD 11:59:03 Versed I.V. 1 mg Cristhian Cortezine for sedation Mostly Katarzyna Gallo RN sleeping @ 12:08:10 11:59:10 Fentanyl I.V. 50 Cristhian Juanita for sedation Mostly mcg Katarzyna Gallo RN sleeping @ MD 12:08:07 12:07:51 Versed I.V. 1 mg Cristhian Juanita for sedation Mostly Katarzyna Gallo RN sleeping @ MD 12:15:48 12:08:01 Fentanyl I.V. 50 Cristhian Juanita for sedation Mostly mcg Katarzyna Gallo RN sleeping @ MD 12:15:44 12:48:34 Heparin Bolus I.V. 4000 Cristhian Grant for units Katarzyna Gallo RN anticoagulation MD 13:00:27 Versed I.V. 1 mg Cristhian Juanita for sedation Katarzyna Gallo RN, MD 13:00:34 Fentanyl I.V. 50 Cristhian Grant for sedation [facility]arzyna Gallo RN, MD Procedure Log Time Note 10:48:05 Patient Height : 67 inches 10:48:14 Patient Weight : 225 lbs 11:04:23 Time tracking: Regular hours (M-F 7:00 - 5:00) 11:04:43 Plan of Care:Hemodynamics will remain stable., Cardiac rhythm will remain stable., Comfort level will be maintained., Respiratory function will remain adequate., Patient/ family verbilizes understanding of procedure., Procedure tolerated without complication., Recovers from procedure without complications.. 11:04:53 Patient received from Other to IR Alert and oriented. Tansferred to table in Supine position. 11:04:59 Signed procedure consent form obtained from patient. 11:05:06 H&P Date Dictated: 09/15/2018 Within 30 days and on chart.. 11:05:10 Patient diabetic? No. 11:05:13 - 11:05:15 ----Pre-sedation anethsthesia assessment.---- 11:05:27 Previous problem with sedation/anesthesia? No ? 11:05:31 Snore? No 11:05:33 Sleep apnea? Yes 11:05:35 Deviated septum? No 11:05:39 Opens mouth fully? Yes 11:05:41 Sticks out tongue? Yes 11:05:47 Airway obstruction? Yes asthma 11:05:58 Dentures? No ? 11:06:07 IV patent on arrival in right IJ with D5/.45%NaCl at [facility]. 11:06:16 Right Arm area was prepped with chlora-prep and draped in sterile fashion 11:06:29 - 11:06:35 Use device set IR Diagnostic 11:07:08 BENTSON 145cm wire ([id number]) opened to sterile field. 11:07:09 Micropuncture VSI 4FR kit opened to sterile field. 11:07:10 Tegaderm 4 x 4 ([id number]) opened to sterile field. 11:07:10 Sterile Angiographic Pack opened to sterile field. 11:07:11 Bag Decanter (2002S) opened to sterile field. 11:07:27 ECG and BP/O2 sat monitors applied to patient. 11:07:30 Vital chart was started 11:07:40 Baseline sample Acquired. 11:07:44 Full Disclosure recording started 11:07:51 Baseline sample Acquired. 11:08:01 Baseline sample Acquired. 11:08:21 Baseline sample Acquired. 11:08:26 - 11:08:30 Pre-procedure instructions explained to patient. 11:08:31 Pre-op teaching completed and patient verbalized understanding. 11:08:33 Family unavailable. 11:08:36 Patient NPO since Midnight. 11:08:49 Patient allergic to Penicillins 11:08:59 Is the patient allergic to Iodine/contrast media? No. 11:09:04 - 11:11:57 [facility] FIRM 260CM glide wire ([id number]) opened to sterile field. 11:16:20 Physician arrived 11:16:29 --------ALL STOP TIME OUT------ 11:16:30 Final Timeout: patient, procedure, and site verified with staff and physician. All members of the team are in agreement. 11:17:42 Procedure started. 11:17:49 Local anesthetic to right arm with Lidocaine 1% by Cristhian Colón MD.INITIAL ACCESS ONLY 11:17:52 Venous access obtained using ultrasound guidance. 11:22:43 Oxygen 4 l/min etCO2 Nasal cannula was administered by Juanita Gallo RN; for sedation; 11::57 Lidocaine 1% 20ml vial added to field was administered by Cristhian paulson MD; used for procedure; 11:23:31 Heparin Flush Bag (1000units/500ml NS) 3 bags added to field was administered by Cristhian Colón MD; used for procedure; 11::31 Versed 2 mg I.V. was administered by Juanita Gallo RN; for sedation; 11:24:41 Fentanyl 50 mcg I.V. was administered by Juanita Gallo RN; for sedation; 11:24:51 Arrow 6Fr TREROTOLA thrombectomy opened to sterile field. 11:30:31 GLIDE CATHETER 5FR ANGLED 65cm (CG507) opened to sterile field. 11:34:56 Heparin Bolus 5000 units I.V. was administered by Juanita Gallo RN; for anticoagulation; 11:38:17 Inflate balloon Inflation number: 1 A Evercross 6 x 4 x 135 Balloon ([id number]) was prepped and advanced across the Undefined1, then inflated . 11:38:49 INFLATOR BasixTOUCH (JF7509) opened to sterile field. 11:39:34 Effectiveness of Fentanyl delivered @ 11:24:41 is: Mostly sleeping 11:39:38 Effectiveness of Versed delivered @ 11:24:31 is: Mostly sleeping 11:40:27 Inflate balloon Inflation number: 2 A Evercross 8 x 40 x 80 ([id number]) was prepped and advanced across the Undefined1, then inflated . 11:41:40 Fentanyl 50 mcg I.V. was administered by Juanita Gallo RN; for sedation; 11:56:30 Inflate balloon Inflation number: 3 A Evercross 8 x 40 x 80 ([id number]) was prepped and advanced across the Undefined1, then inflated. 11:59:03 Versed 1 mg I.V. was administered by Juanita Gallo RN; for sedation; 11:59:10 Fentanyl 50 mcg I.V. was administered by Juanita Gallo RN; for sedation; 12:07:51 Versed 1 mg I.V. was administered by Juanita Gallo RN; for sedation; 12:08:01 Fentanyl 50 mcg I.V. was administered by Juanita Gallo RN; for sedation; 12:08:07 Effectiveness of Fentanyl delivered @ 11:59:10 is: Mostly sleeping 12:08:10 Effectiveness of Versed delivered @ 11:59:03 is: Mostly sleeping 12:15:44 Effectiveness of Fentanyl delivered @ 12:08:01 is: Mostly sleeping 12:15:48 Effectiveness of Versed delivered @ 12:07:51 is: Mostly sleeping 12:33:40 Indigo System Aspiration Catheter 8 opened to sterile field. 12:33:41 Indigo System Pump suction opened to sterile field. 12:34:[address] [facility] ([id number]) opened to sterile field. 12:44:57 EVERFLEX 8 x 40 Stent ([id number]) was deployed across Undefined1 . 12:45:39 Protege GPS 9 x 40 X 120 Stent ([id number]) was deployed across Undefined1 . 12:48:34 Heparin Bolus 4000 units I.V. was administered by Juanita Gallo RN; for anticoagulation; 13:00:27 Versed 1 mg I.V. was administered by Juanita Gallo RN; for sedation; 13:00:34 Fentanyl 50 mcg I.V. was administered by Juanita Gallo RN; for sedation; 13:02:35 Protege GPS 10x 40 X 120 Stent ([id number]) was deployed across Undefined1 . 13:03:44 Inflate balloon Inflation number: 4 A Evercross 10 x 40 x 135 Balloon ([id number]) was prepped and advanced across the Undefined1, then inflated. 13:08:55 Procedure ended.(Physican Out) 13:09:10 Fluoroscopy time 23.20 minutes. 13:09:14 Fluoroscopy dose: 241 mGy 13:09:14 Flurop Dose total: 241 13:09:20 Contrast amount:Isovue 300 145ml. 13::23 Procedure and supply charges have been captured, reviewed, submitted an d are correct. 13:25:08 Vital chart was stopped 13:25:34 Report given to Other. Intervention Summary Intervention Notes Time ActionType Lesion and Equipment Used Action# Pressure Duration Attributes 11:38:17 Inflate Undefined1 Evercross 6 x 4 x 1 0 00:00 balloon 135 Balloon ([id number]) 11:40:27 Inflate Undefined1 Evercross 8 x 40 x 2 0 00:00 balloon 80 ([id number]) 11:56:30 Inflate Undefined1 Evercross 8 x 40 x 3 0 00:00 balloon 80 ([id number]) 12:44:57 Deploy self Undefined1 EVERFLEX 8 x 40 1 expanding Stent stent ([id number]) 12:45:39 Deploy self Undefined1 Protege GPS 9 x 40 1 expanding X 120 Stent stent ([id number]) 13:02:35 Deploy self Undefined1 Protege GPS 10x 40 1 expanding X 120 Stent stent ([id number]) 13:03:44 Inflate Undefined1 Evercross 10 x 40 4 0 00:00 balloon x 135 Balloon ([id number]) Device Usage Item Name Manufacture Quantity Catalog Number [facility] Minimal Lot# / Charge Number Stock Stock Serial# Code BENTSON 145cm wire Cook Medical 1 [id number] 999 723 5 ([id number]) Micropuncture VSI VSI VASCULAR 1 [id number] 209919 999 433 5 4FR kit SOLUTIONS Tegaderm 4 x 4 3M 1 1626W 666641 349918 993 928 5 (1626W) Sterile Cardinal 1 [id number] 252453 998 473 5 Angiographic Pack Health Bag Decanter Microtek 1 2001S 776916 00773 988 775 5 (2001S) Medical Inc. [facility] Cook Medical 1 [id number] 660661 999 973 5 [id number] 260CM glide wire ([id number]) Arrow 6Fr Teleflex 1 [id number] 208039 027876 999 997 5 TREROTOLA thrombectomy GLIDE CATHETER 5FR Terumo 1 CG507 198627 999 784 5 ANGLED 65cm (CG507) Evercross 6 x 4 x Medtronic 1 [id number] 772751 069759 999 995 5 [id number] 135 Balloon ([id number]) INFLATOR Merit 1 RD3508 480913 579748 999 846 5 Aardvark (QE2081) Evercross 8 x 40 x Medtronic 2 [id number] 220160 614401 999 996 5 [id number] 80 ([id number]) [id number] Indigo System Penumbra 1 [id number] 176531 523077 999 998 1 Aspiration Catheter 8 Indigo System Pump Penumbra 1 IAPS2 926624 40866 [address] [facility] 1 323653 137083 946350 999 978 5 [id number] (694910) EVERFLEX 8 x 40 Medtronic 1 [id number] 603026 346526 999 997 5 [id number] Stent [id number] ([id number]) Protege GPS 9 x 40 Medtronic 1 [id number] 752429 910822 999 998 5 [id number] X 120 Stent [id number] ([id number]) Protege GPS 10x 40 Medtronic 1 [id number] 838956 883542 999 997 5 [id number] X 120 Stent [id number] ([id number]) Evercross 10 x 40 Medtronic 1 [id number] 897430 254888 999 992 5 [id number] x 135 Balloon ([id number]) Signature Audit Hext Stage Time Signature Unsigned Intra-Procedure 09/15/2018 Cherrie Magallon 1:25:56 PM RT(R) [address] [place] [address]
[2018-09-14 08:00] VITALS: BP 115/62
[~2018-09-14 13:32] MED LIST changes: +LYRICA75 MG PO; +PLAVIX75 MG PO
[2018-09-14 14:29] VITALS: BP 110/72; BMI 35.3
[2018-09-14] MEDS ORDERED: ATARAX 25 MG TA25 MG (15:31)
[2018-09-14 16:06] LABS: BASOPHILS 0.2 % (0-2); HEMOGLOBIN 12.2 g/dL (12-16); LYMPHOCYTES 28.3 % (15-50); MCH 28.4 pg (26.0-34.0); MCHC 32.1 g/dL (31.0-37.0); MCV 88.4 fL (80.0-100.0); MONOCYTES 7.9 % (2-11); NEUTROPHILS 60.6 % (40-80); RDW 15.9 % (11.5-14.5)
[2018-09-14 16:09] VITALS: BP 124/82
[2018-09-14 16:11] LABS: PLATELET COUNT 136 10x3/uL (130-400)
[2018-09-14 16:14] LABS: ANION GAP 14.4 mmol/L (8-16); CALCIUM 9.4 mg/dL (8.5-10.1); CARBON DIOXIDE 27.5 mmol/L (21.0-32.0); CREATININE - SERUM 10.7 mg/dL (0.6-1.3); POTASSIUM - SERUM 4.9 mmol/L (3.5-5.1)
[2018-09-14 16:22] LABS: INR 1.17 (0.85-1.17); PROTIME 14.5 SECONDS (11.6-15.0)
[2018-09-15] VITALS (8 sets, daily range): BP systolic 106–143; BP diastolic 57–84; Ht 170.2 cm; Wt 103.6 kg
[2018-09-15 04:07] LABS: BASOPHILS 0.1 % (0-2); EOSINOPHILS 0.5 % (0-7); HEMATOCRIT 39.9 % (36.0-48.0); HEMOGLOBIN 12.8 g/dL (12-16); LYMPHOCYTES 8.3 % (15-50); MCH 28.4 pg (26.0-34.0); MCHC 32.1 g/dL (31.0-37.0); MCV 88.7 fL (80.0-100.0); MEAN PLATELET VOLUME 10.2 fL (7.4-10.4); MONOCYTES 3.3 % (2-11); NEUTROPHILS 87.8 % (40-80); PLATELET COUNT 133 10x3/uL (130-400); RDW 15.6 % (11.5-14.5); WBC 7.5 10x3/uL (4.8-10.8)
[2018-09-15 04:16] LABS: ANION GAP 11.2 mmol/L (8-16); CARBON DIOXIDE 32.7 mmol/L (21.0-32.0); CREATININE - SERUM 9.9 mg/dL (0.6-1.3); POTASSIUM - SERUM 4.9 mmol/L (3.5-5.1)
[2018-09-15 04:22] LABS: INR 1.16 (0.85-1.17); PROTIME 14.3 SECONDS (11.6-15.0)
[2018-09-15 04:23] LABS: APTT 46.8 SECONDS (22.8-39.4)
[2018-09-16 00:14] VITALS: BP 105/67
[2018-09-16 04:34] VITALS: BP 110/68
[2018-09-16 08:01] VITALS: BP 124/60
[2018-09-16 09:53] LABS: BASOPHILS 0.3 % (0-2); EOSINOPHILS 9.7 % (0-7); HEMATOCRIT 35.4 % (36.0-48.0); HEMOGLOBIN 11.3 g/dL (12-16); IMMATURE GRANULOCYTES 0.1 % (0-5); LYMPHOCYTES 22.2 % (15-50); MCH 28.3 pg (26.0-34.0); MCHC 31.9 g/dL (31.0-37.0); MCV 88.7 fL (80.0-100.0); MONOCYTES 7.2 % (2-11); NEUTROPHILS 60.5 % (40-80); PLATELET COUNT 129 10x3/uL (130-400); RBC 3.99 10x6/uL (4.00-5.40); RDW 15.8 % (11.5-14.5); WBC 6.7 10x3/uL (4.8-10.8)
[2018-09-16 09:58] LABS: CARBON DIOXIDE 24.1 mmol/L (21.0-32.0); CREATININE - SERUM 12.9 mg/dL (0.6-1.3); POTASSIUM - SERUM 4.1 mmol/L (3.5-5.1)
[2018-09-16 12:00] VITALS: BP 102/54
[2018-09-16 19:36] VITALS: BP 100/49
[2018-09-17 00:20] VITALS: BP 95/53
[2018-09-17 04:18] VITALS: BP 104/55
[2018-09-17 04:52] LABS: BASOPHILS 0.4 % (0-2); EOSINOPHILS 7.7 % (0-7); HEMATOCRIT 33.3 % (36.0-48.0); HEMOGLOBIN 10.8 g/dL (12-16); IMMATURE GRANULOCYTES 0.2 % (0-5); LYMPHOCYTES 25.9 % (15-50); MCH 28.6 pg (26.0-34.0); MCHC 32.4 g/dL (31.0-37.0); MCV 88.1 fL (80.0-100.0); MEAN PLATELET VOLUME 10.1 fL (7.4-10.4); MONOCYTES 10.7 % (2-11); NEUTROPHILS 55.1 % (40-80); RBC 3.78 10x6/uL (4.00-5.40); RDW 15.4 % (11.5-14.5); WBC 5.6 10x3/uL (4.8-10.8)
[2018-09-17 05:10] LABS: PLATELET COUNT 121 10x3/uL (130-400)
[2018-09-17 05:15] LABS: ANION GAP 16.3 mmol/L (8-16); CALCIUM 8.9 mg/dL (8.5-10.1); CREATININE - SERUM 12.1 mg/dL (0.6-1.3); POTASSIUM - SERUM 4.3 mmol/L (3.5-5.1)
[2018-09-17 07:18] VITALS: BP 103/61
[2018-09-17 11:57] VITALS: BP 111/67
[2018-09-17 16:02] VITALS: BP 115/60
[2018-09-17 20:08] VITALS: BP 121/64
[2018-09-18] VITALS: BP 114/64
[2018-09-18 04:00] VITALS: BP 115/66
[2018-09-18 06:47] LABS: BASOPHILS 0.3 % (0-2); EOSINOPHILS 10.4 % (0-7); HEMATOCRIT 31.9 % (36.0-48.0); HEMOGLOBIN 10.1 g/dL (12-16); IMMATURE GRANULOCYTES 0.2 % (0-5); LYMPHOCYTES 22.1 % (15-50); MCH 27.6 pg (26.0-34.0); MCHC 31.7 g/dL (31.0-37.0); MCV 87.2 fL (80.0-100.0); MEAN PLATELET VOLUME 10.1 fL (7.4-10.4); MONOCYTES 12.4 % (2-11); NEUTROPHILS 54.6 % (40-80); PLATELET COUNT 118 10x3/uL (130-400); RBC 3.66 10x6/uL (4.00-5.40); RDW 15.4 % (11.5-14.5); WBC 5.9 10x3/uL (4.8-10.8)
[2018-09-18 07:09] LABS: ANION GAP 19.7 mmol/L (8-16); CALCIUM 9.2 mg/dL (8.5-10.1); CARBON DIOXIDE 23.6 mmol/L (21.0-32.0); CREATININE - SERUM 14.4 mg/dL (0.6-1.3); POTASSIUM - SERUM 4.3 mmol/L (3.5-5.1)
[2018-09-18 07:49] VITALS: BP 112/63
[2018-09-18 15:00] VITALS: BP 112/60
[2018-09-18 21:52] VITALS: BP 98/48
[2018-09-19 00:24] VITALS: BP 108/65
[2018-09-19 04:15] VITALS: BP 107/59
[2018-09-19 07:03] LABS: BASOPHILS 0.3 % (0-2); EOSINOPHILS 11.5 % (0-7); HEMATOCRIT 31.7 % (36.0-48.0); HEMOGLOBIN 10.3 g/dL (12-16); IMMATURE GRANULOCYTES 0.3 % (0-5); LYMPHOCYTES 22.7 % (15-50); MCH 28.1 pg (26.0-34.0); MCHC 32.5 g/dL (31.0-37.0); MCV 86.6 fL (80.0-100.0); MEAN PLATELET VOLUME 9.8 fL (7.4-10.4); NEUTROPHILS 53.2 % (40-80); RBC 3.66 10x6/uL (4.00-5.40); RDW 15.8 % (11.5-14.5); WBC 6.4 10x3/uL (4.8-10.8)
[2018-09-19 07:04] LABS: PLATELET COUNT 143 10x3/uL (130-400)
[2018-09-19 07:18] LABS: ANION GAP 18.7 mmol/L (8-16); CALCIUM 8.9 mg/dL (8.5-10.1); CARBON DIOXIDE 23.9 mmol/L (21.0-32.0); CREATININE - SERUM 13.5 mg/dL (0.6-1.3); POTASSIUM - SERUM 4.6 mmol/L (3.5-5.1)
[2018-09-19 07:39] VITALS: BP 124/74
[2018-09-19 11:21] VITALS: BP 104/56
[2018-09-19 16:05] VITALS: BP 113/62
[2018-09-20 00:25] VITALS: BP 120/71
[2018-09-20 04:31] VITALS: BP 116/60
[2018-09-20 06:14] LABS: BASOPHILS 0.2 % (0-2); EOSINOPHILS 10.4 % (0-7); HEMATOCRIT 30.9 % (36.0-48.0); HEMOGLOBIN 9.8 g/dL (12-16); IMMATURE GRANULOCYTES 0.2 % (0-5); LYMPHOCYTES 22.2 % (15-50); MCH 27.8 pg (26.0-34.0); MCHC 31.7 g/dL (31.0-37.0); MCV 87.8 fL (80.0-100.0); MEAN PLATELET VOLUME 9.7 fL (7.4-10.4); PLATELET COUNT 135 10x3/uL (130-400); RBC 3.52 10x6/uL (4.00-5.40); RDW 15.9 % (11.5-14.5); WBC 5.6 10x3/uL (4.8-10.8)
[2018-09-20 06:29] LABS: ANION GAP 15.7 mmol/L (8-16); CALCIUM 8.7 mg/dL (8.5-10.1); CREATININE - SERUM 12.5 mg/dL (0.6-1.3); POTASSIUM - SERUM 4.7 mmol/L (3.5-5.1)
[2018-09-20 07:26] VITALS: BP 130/74
== END 2018-09-20 11:40 | disposition home or self-care (01) | DRG 252 ==
LOC: D.M3 13:32
PROVIDERS: Internal Medicine; Internal Medicine Nephrology; Radiology Diagnostic Radiology
PROC: 05HN33Z Insertion of Infusion Device into Left Internal Jugular Vein, Percutaneous Approach (ICD-10-PCS; 2018-09-14)
PROC: B544ZZA Ultrasonography of Left Jugular Veins, Guidance (ICD-10-PCS; 2018-09-14)
PROC: 05CB3ZZ Extirpation of Matter from Right Basilic Vein, Percutaneous Approach (ICD-10-PCS; 2018-09-15)
PROC: 057B3DZ Dilation of Right Basilic Vein with Intraluminal Device, Percutaneous Approach (ICD-10-PCS; 2018-09-15)
PROC: 037 Upper Arteries, Dilation (ICD-10-PCS; principal; 2018-09-15 11:17)
DX: T82.868A Thrombosis due to vascular prosthetic devices, implants and grafts, initial encounter (principal); N18.6 End stage renal disease; I12.0 Hypertensive chronic kidney disease with stage 5 chronic kidney disease or end stage renal disease; Y83.8 Other surgical procedures as the cause of abnormal reaction of the patient, or of later complication, without mention of misadventure at the time of the procedure; Z99.2 Dependence on renal dialysis; E87.5 Hyperkalemia; E66.01 Morbid (severe) obesity due to excess calories; Z68.35 Body mass index [BMI] 35.0-35.9, adult

== ENCOUNTER 2018-10-31 06:40 | Day surgery (SDC) | payer MEDICAID ==
[~2018-10-31] VITALS: Ht 170.2 cm; Wt 108.0 kg
--- NOTE | ~2018-10-31 | OP ---
PATIENT NAME: MARGARET QUIROZ MEDICAL RECORD: [id number] :73 LOCATION:D.OPS ADMISSION DATE: SURGEON: ALFREDO FRANCO MD DATE OF OPERATION: 10/31/2018 REFERRING PHYSICIAN: Cathie Leiva MD PREOPERATIVE DIAGNOSES: Mechanical complication of left forearm radiocephalic arteriovenous fistula with recent thrombosis. POSTOPERATIVE DIAGNOSES: Mechanical complication of left forearm radiocephalic arteriovenous fistula with recent thrombosis. OPERATION PERFORMED: Ultrasound-guided access and fistulogram of right arm AV fistula. SURGEON: Alfredo Franco MD ANESTHESIA: Regional block plus general anesthesia per AUDIO EXPERIENCE EXPERT. PREOPERATIVE NOTE: Ms. Quiroz is a 43-year-old -[place] female from [place], [place]. She has dialysis there in [place] on Tuesday, Tuesday, and Fridays and she has been dialyzing for a long time with a right forearm radiocephalic AV fistula. She recently suffered an acute thrombosis and was found at angiography to have a large clot load, which could not be adequately handled percutaneously. She was referred to me at that time, but I was unable to take care of her rapidly as she needed and interventional radiology was kind enough to see her and go on to perform a percutaneous mechanical thrombolysis with angioplasty and placement of stents in the forearm. There has been a question as to the venous outflow above this fistula and whether the veins in the upper arm are large enough to handle clot in the forearm fistula, etc, and it was thought that she might possibly need construction of a new upper arm AV fistula with abandonment of the right forearm fistula. She has had a previous AV graft in her left arm, but it has thrombosed. She is presently dialyzing with a left internal jugular tunneled dialysis catheter. She is brought to the operating room at this time with plans to do a fistulogram on the right arm and then further procedures as indicated possibly revision or even AV graft bypass of the forearm access or creation of a brachiobasilic fistula in the right arm. DESCRIPTION OF PROCEDURE: Under anesthesia in supine position, the patient was prepped and draped in a sterile manner. I examined her fistula with ultrasound and noted that there was no remaining clot load within the lumen of this large fistula. There was organized thrombus along the wall in several places and surrounding 2 stents, which had been placed recently by interventional radiology. I accessed her fistula near the arterial anastomosis with ultrasound guidance and micropuncture technique and eventually placed a 6-Thai introducer. I performed a fistulogram with digital subtraction and followed contrast all the way to the right atrium. The abnormalities I saw was that flow centrally was somewhat slow and appeared to hang up in her tortuous right brachiocephalic vein and this resistance of flow in this area may be secondary to the presence of her tunneled dialysis catheter. There were no other venous stenoses found. The lumen of the fistula was adequate and I then did a retrograde injection and imaged the juxta-anastomotic segment and the arterial anastomosis and noted this all to be wide open. So at this point, there is no reason she cannot resume dialysis with her right forearm radiocephalic AV OPERATIVE REPORT [id number] QUIROZ,MARGARET S fistula. She should start having dialysis with it tomorrow and if after 2 weeks the [place] [facility] is not having any problem accessing her or dialyzing her with her right arm fistula, she is to be referred [facility] to [facility] for removal of her tunneled dialysis catheter. There was no blood loss during the procedure. Sponges, instruments, and needles were accounted for. No drain was used and no surgical specimen was submitted for histopathology. TRANSINT:[id number] Voice Confirmation ID: [id number] DOCUMENT ID: [id number] CC: Vicky Samson [place] [phone] ALFREDO FRANCO MD at 2360 CC: VICKY SAMSON [place] and CATHIE LEIVA MD [phone] DICTATION DATE: 10/31/18 1228 FINANCIAL REPORTING ACCOUNTANT: 10/31/18 1341 [facility] 10/31/18 [facility] [address] [place] [address]
[~2018-10-31 06:40] MED LIST changes: +ATARAX 25 MG TA25 MG
[2018-10-31] MEDS ORDERED: SENSIPAR30 MG PO (07:37)
[2018-10-31] MEDS ORDERED: PROTONIX40 MG PO (07:37)
[2018-10-31 07:47] VITALS: BP 179/76; Ht 170.2 cm; Wt 108.0 kg
[2018-10-31 07:54] LABS: BASOPHILS 0.4 % (0-2); EOSINOPHILS 5.7 % (0-7); HEMATOCRIT 35.7 % (36.0-48.0); HEMOGLOBIN 11.2 g/dL (12-16); IMMATURE GRANULOCYTES 0.2 % (0-5); LYMPHOCYTES 22.3 % (15-50); MCH 28.3 pg (26.0-34.0); MCHC 31.4 g/dL (31.0-37.0); MCV 90.2 fL (80.0-100.0); MEAN PLATELET VOLUME 9.5 fL (7.4-10.4); MONOCYTES 9.5 % (2-11); NEUTROPHILS 61.9 % (40-80); PLATELET COUNT 152 10x3/uL (130-400); RBC 3.96 10x6/uL (4.00-5.40); RDW 16.2 % (11.5-14.5); WBC 5.3 10x3/uL (4.8-10.8)
[2018-10-31 08:02] LABS: ANION GAP 18.8 mmol/L (8-16); POTASSIUM - SERUM 3.8 mmol/L (3.5-5.1)
[2018-10-31 08:10] LABS: APTT 30.3 SECONDS (22.8-39.4); INR 1.1 (0.85-1.17); PROTIME 13.7 SECONDS (11.6-15.0)
[2018-10-31 11:41] LABS: HCG SERUM NEGATIVE (NEGATIVE)
== END 2018-10-31 15:30 | disposition home or self-care (01) ==
LOC: D.OPS 06:40
PROVIDERS: Anesthesiology; Surgery
DX: T82.590A Other mechanical complication of surgically created arteriovenous fistula, initial encounter (principal); Z01.812 Encounter for preprocedural laboratory examination; N18.6 End stage renal disease; Z99.2 Dependence on renal dialysis